=== PATIENT | female | born 1980 | race Hispanic/Latino ===

== ENCOUNTER → 2017-10-10 16:00 | Outpatient (AMBR) | payer BC, OTHER, SELFPAY ==
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
--- NOTE | 2017-09-23 17:32 | PT.ODAYNRPT ---
PT Outpatient Daily Note Date of Service: September 23, 2017 OP Daily Note Visit Reasons: Back pain Outpatient Physical Therapy Treatment Date: 09/23/17 Subjective: pt was having pain upon visit as she did not take her muscle relaxer meds last night so she woke up stiff today. Objective: see flow sheet. Assessment: pt was very limited in mobility today due to stiffness so started off with heat in supine position. pt enjoyed the hot pack but was still stiff. pt was not able to raise shoulder over head using light thera band due to muscle tightness. pt was not able to stretch the thera band very far during T's exercise. fair mid back activation with exercises noted. slow pace during sci-fit. made pt aware of soreness after today's session. advised pt to use heat if needed for muscle tension. Plan: continue POC per PT. Length of Time (minutes) of Treatment: 30 Minutes Office Procedures PT Procedures PT Date of Service: 09/18/17 OP PT Eval Mod Complex 30 minutes: Yes PT Procedures PT Date of Service: 09/23/17 Therapeutic Exercise 30 minutes: Yes
--- NOTE | 2017-09-23 17:36 | PTNOTE_ITS ---
PT Outpatient Daily Note Date of Service: September 23, 2017 OP Daily Note Visit Reasons: Back pain Outpatient Physical Therapy Treatment Date: 09/23/17 Subjective: pt was having pain upon visit as she did not take her muscle relaxer meds last night so she woke up stiff today. Objective: see flow sheet. Assessment: pt was very limited in mobility today due to stiffness so started off with heat in supine position. pt enjoyed the hot pack but was still stiff. pt was not able to raise shoulder over head using light thera band due to muscle tightness. pt was not able to stretch the thera band very far during T's exercise. fair mid back activation with exercises noted. slow pace during sci- fit. made pt aware of soreness after today's session. advised pt to use heat if needed for muscle tension. Plan: continue POC per PT. Length of Time (minutes) of Treatment: 30 Minutes Office Procedures PT Procedures PT Date of Service: 09/18/17 OP PT Eval Mod Complex 30 minutes: Yes PT Procedures PT Date of Service: 09/23/17 Therapeutic Exercise 30 minutes: Yes
--- NOTE | 2017-09-26 16:57 | PT.ODAYNRPT ---
PT Outpatient Daily Note Date of Service: September 26, 2017 OP Daily Note Visit Reasons: Back pain Outpatient Physical Therapy Treatment Date: 09/26/17 Subjective: Pt had a weird spasm in her back the other night. Pt is unsure if it was PT. Pt denies of doing anything different. Objective: Please see flow chart for list of ther ex performed Assessment: perform more AROM exercises today no resistance added; Pt still had difficulty with all exercises performed due to pain. Heat helps her exercise Plan: Continue with PT Length of Time (minutes) of Treatment: 30 Minutes Office Procedures PT Procedures PT Date of Service: 09/18/17 OP PT Eval Mod Complex 30 minutes: Yes PT Procedures PT Date of Service: 09/23/17 Therapeutic Exercise 30 minutes: Yes PT Procedures PT Date of Service: 09/26/17 Therapeutic Exercise 30 minutes: Yes
--- NOTE | 2017-10-04 16:48 | PT.ODAYNRPT ---
PT Outpatient Daily Note Date of Service: October 04, 2017 OP Daily Note Visit Reasons: Back pain Outpatient Physical Therapy Treatment Date: 10/04/17 Subjective: pt reported pain of the mid back upon visit. Objective: see flow sheet. Assessment: pt performs exercises/reps with slow steady pace but maintains good posture. pt understands exercises well and has no difficulty. during LTR pt was having facial expressions indicating tightness causing discomfort. pt on HP during supine exercises as it seems to calm the pain. Plan: continue POC per PT. Length of Time (minutes) of Treatment: 30 Minutes Office Procedures PT Procedures PT Date of Service: 09/18/17 OP PT Eval Mod Complex 30 minutes: Yes PT Procedures PT Date of Service: 09/23/17 Therapeutic Exercise 30 minutes: Yes PT Procedures PT Date of Service: 09/26/17 Therapeutic Exercise 30 minutes: Yes PT Procedures PT Date of Service: 10/04/17 Therapeutic Exercise 30 minutes: Yes
--- NOTE | 2017-10-10 16:45 | PTNOTE_ITS ---
PT OP Progress/Discharge Note Date of Service: October 10, 2017 Progress Note/DC Note Progress Note/Discharge Note: DC Note Patient Information Visit Reasons: Back pain Service Continue Service or Discharge: Discharge Discharge Date: 10/10/17 Status Subjective: Pt mention that her back continues to hurt with spasm in the mid back. Pt stated that back has improved with physical therapy slightly but minimal change. She still has difficulty with lifting, chores, cooking, cleaning , and performing her work duties. Pt feels comfortable being release from PT with exercises to continue at home. Objective: T/S AROM: all motions are WNL but pain towards end range in extension Scapula MMTs: grossly 3+/5 Palpation: TTP T2-T7 paraspinal musculature Assessment: Pt's overall mid back minimal change with physical therapy leading to continue difficulty with functional ADLs. Pt will no longer benefit from physical therapy due to minimal progression towards functional goals. Pt was instructed on HEP last session and educated to continue exercises to maintain overall mobility. All exercises performed safely, thank you for your referrals. Plan: D/C home with HEP and follow up with for further work up Office Procedures PT Procedures PT Date of Service: 09/18/17 OP PT Eval Mod Complex 30 minutes: Yes PT Procedures PT Date of Service: 10/10/17 Therapeutic Exercise 30 minutes: Yes PT Procedures PT Date of Service: 09/23/17 Therapeutic Exercise 30 minutes: Yes PT Procedures PT Date of Service: 09/26/17 Therapeutic Exercise 30 minutes: Yes PT Procedures PT Date of Service: 10/04/17 Therapeutic Exercise 30 minutes: Yes
== END ==
PROVIDERS: PCP Family Medicine; Referring Provider Family Medicine; Visit Provider Family Medicine
DX: M99.02 Segmental and somatic dysfunction of thoracic region (principal); R26.2 Difficulty in walking, not elsewhere classified; M54.6 Pain in thoracic spine
CPT/HCPCS: 97110; 97162